=== PATIENT | male | born 1970 | race Caucasian/White ===

== ENCOUNTER 2016-05-31 11:49 | Emergency (ER) | payer OTHER ==
[~2016-05-31 11:49] MED LIST: AMBIEN CR12.5 MG/BO PO; FLOMAX0.4 M1 PO; FLOMAX0.4 MG PO; LUNESTA3 M1 PO; LUNESTA3 MG PO; NORCO 5/325 TAB1 TAB PO; NORCO 7.5/325 T1 TAB PO; PERCOCET 5-3251 EACH PO; PERCOCET 5/3251 TAB PO; ZOFRAN ODT4 MG PO
[2016-05-31] MEDS ORDERED: TORADOL PO (12:03)
[2016-05-31 12:22] LABS: URINE BILIRUBIN NEGATIVE (NEG); URINE BLOOD NEGATIVE (NEG); URINE GLUCOSE (UA) NEGATIVE (NEG); URINE KETONE SMALL (NEG); URINE LEUKOCYTE ESTERASE NEGATIVE (NEG); URINE NITRITE NEGATIVE (NEG); URINE PROTEIN NEGATIVE (NEG); URINE SPECIFIC GRAVITY 1.025 (1.003-1.030)
[2016-05-31 12:23] LABS: URINE APPEARANCE CLOUDY; URINE COLOR YELLOW
[2016-05-31 12:30] LABS: CREATININE 1.08 mg/dl (0.67-1.17); eGFR VALUE FOR BLACK >90 mL/Min
[2016-05-31] MEDS ORDERED: PERCOCET 5-3251 EACH PO (14:57)
[2016-05-31] MEDS ORDERED: FLOMAX0.4 M1 PO (14:57)
[2016-05-31] MEDS ORDERED: ZOFRAN4 M2 PO (14:57)
== END 2016-05-31 15:48 ==
LOC: EDMED 11:49
PROVIDERS: Emergency Medicine
DX: N13.2 Hydronephrosis with renal and ureteral calculous obstruction (principal); Z87.442 Personal history of urinary calculi; Z90.89 Acquired absence of other organs
CPT/HCPCS: J1885; J2270; J2405; J7030